=== PATIENT | male | born 1990 | race Caucasian/White ===

== ENCOUNTER 2017-07-05 11:40 | Emergency (ER) | payer MEDICAID, OTHER ==
[~2017-07-05] VITALS: Ht 170.2 cm; Wt 82.7 kg
[2017-07-05 13:47] VITALS: BP 139/88
== END 2017-07-05 14:20 | disposition home or self-care (01) ==
LOC: EMS 11:42
DX: S70.12XA Contusion of left thigh, initial encounter (principal); S40.012A Contusion of left shoulder, initial encounter; R03.0 Elevated blood-pressure reading, without diagnosis of hypertension; V29.9XXA Motorcycle rider (driver) (passenger) injured in unspecified traffic accident, initial encounter; Y93.55 Activity, bike riding; Y92.89 Other specified places as the place of occurrence of the external cause; Y99.8 Other external cause status
CPT/HCPCS: 99282

== ENCOUNTER 2018-06-17 07:24 | Emergency (ER) | payer MEDICAID ==
[~2018-06-17] VITALS: Ht 170.2 cm; Wt 81.8 kg
[2018-06-17 07:25] VITALS: BP 153/99
== END 2018-06-17 08:53 | disposition left against medical advice (07) ==
LOC: EMS 07:25
DX: N48.89 Other specified disorders of penis (principal); Z53.21 Procedure and treatment not carried out due to patient leaving prior to being seen by health care provider

== ENCOUNTER 2024-03-09 20:30 | Emergency (ER) | payer MEDICAID, OTHER ==
[~2024-03-09] VITALS: Ht 170.2 cm; Wt 90.9 kg
[2024-03-09 21:41] VITALS: BP 135/89; PULSE 75; RESP 18; TEMP 97.9; O2SAT 98
[2024-03-09] MEDS: IBUPROFEN 600 MG TABLET PO ONE (22:52)
[2024-03-09] MEDS: ACETAMINOPHEN/CODEINE 300-30 MG TABLET PO ONE (22:53)
[2024-03-09] MEDS: METHOCARBAMOL 500 MG TABLET PO ONE (22:53)
[2024-03-09] MEDS ORDERED: METH-659 PO (23:58)
[2024-03-09] MEDS ORDERED: ACET-2080 PO (23:58)
[2024-03-09] MEDS ORDERED: IBUP-1554 PO (23:58)
== END 2024-03-10 00:31 | disposition home or self-care (01) ==
LOC: EMS 20:30
DX: S29.012A Strain of muscle and tendon of back wall of thorax, initial encounter (principal); S13.4XXA Sprain of ligaments of cervical spine, initial encounter; Z90.49 Acquired absence of other specified parts of digestive tract; V89.2XXA Person injured in unspecified motor-vehicle accident, traffic, initial encounter; Y93.89 Activity, other specified; Y92.410 Unspecified street and highway as the place of occurrence of the external cause; Y99.8 Other external cause status
CPT/HCPCS: 72040; 72070; 99284; Z7502; Z7610